=== PATIENT | female | born 1985 | race Caucasian/White ===

== ENCOUNTER 2016-11-03 11:56 | Outpatient (CLI) | payer MEDICARE, MEDICAID | END 2016-11-03 11:57 | disposition short-term general hospital (02) | LOC: EMS 11:56 | PROVIDERS: ATTEND Surgery | DX: R45.851 Suicidal ideations (principal) | CPT/HCPCS: A0425; A0429; A0888 ==

== ENCOUNTER 2017-01-16 10:53 | Outpatient (CLI) | payer MEDICARE, MEDICAID | END 2017-01-16 10:54 | disposition home or self-care (01) | LOC: EMS 10:53 | PROVIDERS: ATTEND Surgery | DX: Z04.6 Encounter for general psychiatric examination, requested by authority (principal) | CPT/HCPCS: A0425; A0429 ==

== ENCOUNTER 2017-01-16 11:21 | Emergency (ER) | payer MEDICARE, MEDICAID ==
[2017-01-16] MEDS ORDERED: LORazepam 0.5 MG TABLET PO STA (11:28)
[2017-01-16 11:55] LABS: BILIRUBIN,URINE NEGATIVE (NEGATIVE)
[2017-01-16 11:55] LABS: BASOPHILS % (AUTO) 1.2 %; EOSINOPHILS # (AUTO) 0.1 10^3/uL (0.0-0.7); EOSINOPHILS % (AUTO) 2.1 %; HCT - HEMATOCRIT 38.6 % (37.0-47.0); LYMPHOCYTES # (AUTO) 1.3 10^3/uL (1.5-3.5); MEAN CORPUSCULAR HEMOGLOBIN 30.8 pg (27.0-31.0); MEAN CORPUSCULAR HGB CONC 33.8 g/dL (32.0-36.0); MEAN CORPUSCULAR VOLUME 91.1 fL (81.0-99.0); MEAN PLATELET VOLUME 9.4 fL (7.9-10.8); MONOCYTES # (AUTO) 0.2 10^3/uL (0.0-1.0); MONOCYTES % (AUTO) 5.4 %; NEUTROPHILS # (AUTO) 2.4 10^3/uL (1.5-6.6); NEUTROPHILS % (AUTO) 58.3 %; NUCLEATED RED BLOOD CELLS AUTO 0.2 /100WBC; RED BLOOD COUNT 4.24 10^6/uL (4.20-5.40); RED CELL DISTRIBUTION WIDTH 12.2 % (12.0-15.0); UNCORRECTED WHITE BLOOD COUNT 4.1 x10^3/uL; WHITE BLOOD COUNT 4.1 x10^3/uL (4.8-10.8)
[2017-01-16 11:57] LABS: HCG UR QUAL NEGATIVE; UA CHARGE (STRIP ONLY) YES; UR CULTURE IF IND NOT INDICATED
[2017-01-16 12:07] LABS: ALBUMIN/GLOBULIN RATIO 1.8 (1.0-2.2); BILIRUBIN,TOTAL 0.7 mg/dL (0.2-1.0); BUN - BLOOD UREA NITROGEN 15 mg/dL (6-20); CALCIUM 8.7 mg/dL (8.5-10.3); CARBON DIOXIDE - CO2 26 mmol/L (21-32); CHLORIDE 105 mmol/L (101-111); CREATININE 0.7 mg/dL (0.4-1.0); GFR - MDRD 96 (>89); GLUCOSE 100 mg/dL (70-100); LIPASE 20 U/L (22-51); POTASSIUM 3.6 mmol/L (3.5-5.0); SALICYLATE < 6.0 mg/dL; SODIUM 138 mmol/L (135-145); TOTAL PROTEIN 6.1 g/dL (6.7-8.2)
[2017-01-16 12:16] LABS: ACETAMINOPHEN < 10 ug/mL (10-30)
--- NOTE | 2017-01-16 13:57 | ED Physician Documentation ---
History of Present Illness - Stated complaint Stated Complaint: MHE - Chief complaint Chief Complaint: MHE - Additonal information Additional information: hx from pt 31 f hx mental health BIBA today after she tried to get the police to kill her she also voiced plan to harm herself by drinking bleach per EMS (pt will not answer)she has not yet done anything to harm herself no reported recent illness such as fever cough NVD Review of Systems Constitutional: denies: Fever Cardiac: denies: Chest pain / pressure Respiratory: denies: Cough GI: denies: Abdominal Pain, Vomiting, Diarrhea : reports: Frequency Psychiatric: reports: Depressed, Suicidal PD PAST MEDICAL HISTORY - Past Medical History Past Medical History: Yes Cardiovascular: Hypertension Respiratory: None Neuro: None Endocrine/Autoimmune: None GI: GERD 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 : None HEENT: None Psych: Depression, Bipolar disorder Musculoskeletal: None Derm: None - Past Surgical History Past Surgical History: Yes General: Cholecystectomy - Present Medications Home Medications: Ambulatory Orders Medication Instructions Recorded Confirmed hydroCHLOROthiazide [Hydrodiuril] 25 mg PO DAILY 01/08/13 05/16/15 Ziprasidone HCl 20 mg PO BID 11/10/13 05/16/15 Zolpidem [Ambien] 10 mg PO DAILY 01/03/15 05/16/15 - Allergies Allergies/Adverse Reactions: Allergies Allergy/AdvReac Type Severity Reaction Status Date / Time Penicillins AdvReac Unknown Rash Verified 05/16/15 02:03 bee stings AdvReac Mild Respiratory Uncoded 05/16/15 02:03 - Social History Does the pt smoke?: No Smoking Status: Never smoker Does the pt drink ETOH?: Yes Does the pt have substance abuse?: No - Immunizations Immunizations are current?: Yes - POLST Patient has POLST: No PD ED PE NORMAL - Vitals Vital signs reviewed: Yes - General General: Other (make alert arrives in restraints screaming and crying and thrashing in the bed) - HEENT HEENT: Atraumatic, Other (no oral jaquez) - Neck Neck: Supple, no meningeal sign - Cardiac Cardiac: RRR - Respiratory Respiratory: No respiratory distress, Clear bilaterally - Abdomen Abdomen: Soft, Non tender - Derm Derm: Normal color - Neuro Neuro: Alert and oriented X 3 - Psych Psych: Other (crying and saying " just kill me ") Results - Vitals Vitals: Vital Signs - 24 hr 01/16/17 01/16/17 11:30 13:44 Temperature 36.8 C Heart Rate 72 57 L Respiratory 25 H 16 Rate Blood Pressure 114/78 109/63 O2 Saturation 98 100 Oxygen O2 Source Room air - Labs Labs: Laboratory Tests 01/16/17 01/16/17 01/16/17 11:40 11:40 11:40 WBC 4.1 L RBC 4.24 Hgb 13.0 Hct 38.6 MCV 91.1 MCH 30.8 MCHC 33.8 RDW 12.2 Plt Count 161 MPV 9.4 Neut # 2.4 Lymph # 1.3 L [place] # 0.2 Eos # 0.1 Baso # 0.0 Absolute Nucleated RBC 0.01 Nucleated RBCs 0.2 Sodium 138 Potassium 3.6 Chloride 105 Carbon Dioxide 26 Anion Gap 7.0 BUN 15 Creatinine 0.7 Estimated GFR (MDRD) 96 Glucose 100 Calcium 8.7 Total Bilirubin 0.7 AST 22 ALT 24 Alkaline Phosphatase 57 Total Protein 6.1 L Albumin 3.9 Globulin 2.2 Albumin/Globulin Ratio 1.8 Lipase 20 L TSH 0.60 Urine Color Urine Clarity Urine pH Ur Specific [place] Urine Protein Urine Glucose (UA) Urine Ketones Urine Occult Blood Urine Nitrite Urine Bilirubin Urine Urobilinogen Ur Leukocyte Esterase Ur Microscopic Review Urine Culture Comments Urine HCG, Qual Salicylates < 6.0 Urine Opiates Screen Ur Oxycodone Screen Urine Methadone Screen Ur Propoxyphene Screen Acetaminophen < 10 L Ur Barbiturates Screen Ur Tricyclics Screen Ur Phencyclidine Scrn Ur Amphetamine Screen U Methamphetamines Scrn U Benzodiazepines Scrn Urine Cocaine Screen U Cannabinoids Screen Ethyl Alcohol < 5.0 01/16/17 01/16/17 11:45 11:45 WBC RBC Hgb Hct MCV MCH MCHC RDW Plt Count MPV Neut # Lymph # [place] # Eos # Baso # Absolute Nucleated RBC Nucleated RBCs Sodium Potassium Chloride Carbon Dioxide Anion Gap BUN Creatinine Estimated GFR (MDRD) Glucose Calcium Total Bilirubin AST ALT Alkaline Phosphatase Total Protein Albumin Globulin Albumin/Globulin Ratio Lipase TSH Urine Color YELLOW Urine Clarity CLEAR Urine pH 6.0 Ur Specific [place] 1.020 Urine Protein NEGATIVE Urine Glucose (UA) NEGATIVE Urine Ketones [place]ACE Urine Occult Blood NEGATIVE Urine Nitrite NEGATIVE Urine Bilirubin NEGATIVE Urine Urobilinogen 0.2 (NORMAL) Ur Leukocyte Esterase NEGATIVE Ur Microscopic Review NOT INDICATED Urine Culture Comments NOT INDICATED Urine HCG, Qual NEGATIVE Salicylates Urine Opiates Screen NEGATIVE Ur Oxycodone Screen NEGATIVE Urine Methadone Screen NEGATIVE Ur Propoxyphene Screen NEGATIVE Acetaminophen Ur Barbiturates Screen NEGATIVE Ur Tricyclics Screen NEGATIVE Ur Phencyclidine Scrn NEGATIVE Ur Amphetamine Screen NEGATIVE U Methamphetamines Scrn NEGATIVE U Benzodiazepines Scrn NEGATIVE Urine Cocaine Screen NEGATIVE U Cannabinoids Screen NEGATIVE Ethyl Alcohol PD MEDICAL DECISION MAKING - ED course ED course: pt medically cleared seen by JOHN LOPEZ discussed with police and pt counselor who are familiar with pt and per them this is common behavior for this pt per SW not a danger to self or others nor gravely disabled and may be dced home pt c/o urinary freq but UA neg Departure - Departure Disposition: 01 Home, Self Care Clinical Impression: Suicidal ideation, Urinary frequency Condition: Good Instructions: ED Depression Comments: You have been seen by the social work msw for a mental health evaluation and she feels you are safe to go home. The social work msw has arranged a follow up appointment with your private counselor tomorrow Your labs looked fine including the urine test - I am not sure why you have urinary frequency - please follow up with your PMD about that
[2017-01-16 14:15] VITALS: BP 125/81
== END 2017-01-16 14:14 | disposition home or self-care (01) ==
LOC: EDUNIT# → ED 11:21
DX: R45.851 Suicidal ideations (principal); R35.0 Frequency of micturition; I10 Essential (primary) hypertension
CPT/HCPCS: 36415; 80053; 80306; 80307; 81003; 81025; 83690; 84443; 85025; 99283; 99284; G0480; 80320; 80329; 81001; 87086

== ENCOUNTER 2017-01-24 17:37 | Outpatient (CLI) | payer MEDICARE, MEDICAID | END 2017-01-24 17:38 | disposition short-term general hospital (02) | LOC: EMS 17:37 | PROVIDERS: ATTEND Surgery | DX: R45.851 Suicidal ideations (principal) | CPT/HCPCS: A0425; A0429 ==

== ENCOUNTER 2017-02-10 06:47 | Outpatient (CLI) | payer MEDICARE, MEDICAID | END 2017-02-10 06:48 | disposition short-term general hospital (02) | LOC: EMS 06:47 | PROVIDERS: ATTEND Surgery | DX: M54.5 Low back pain (principal) | CPT/HCPCS: A0425; A0429 ==

== ENCOUNTER 2017-05-07 11:08 | Outpatient (CLI) | payer MEDICARE, MEDICAID | END 2017-05-07 11:09 | disposition short-term general hospital (02) | LOC: EMS 11:08 | PROVIDERS: ATTEND Surgery | DX: R45.851 Suicidal ideations (principal) | CPT/HCPCS: A0425; A0429 ==

== ENCOUNTER 2018-02-09 15:04 | Outpatient (CLI) | payer MEDICARE, MEDICAID | END 2018-02-09 15:05 | disposition critical access hospital (66) | LOC: EMS 15:04 | PROVIDERS: ATTEND Surgery | DX: R45.851 Suicidal ideations (principal) | CPT/HCPCS: A0425; A0429 ==

== ENCOUNTER 2018-02-09 15:16 | Emergency (ER) | payer MEDICARE, MEDICAID ==
[2018-02-09 15:23] VITALS: BP 128/74
--- NOTE | 2018-02-09 15:39 | ED Physician Documentation ---
PD HPI MHE - Stated complaint Stated Complaint: SI - Chief complaint Chief Complaint: MHE - History obtained from History obtained from: Patient, EMS, Police - History of Present Illness Primary symptom: Suicidal ideation Timing - onset: Today Pain level max: 0 Pain level now: 0 - Additional information Additional information: Patient is a 32-year-old female who presents to the emergency department after being brought in by EMS and police. She called 911 to have a asset protection officer dispatched to her home that they would "shoot me". She states that she would like the police officers to come back and and shoot her. She states that she will sign a waiver so that there are no legal issues with this. She states she is depressed and suicidal. When the police were at her house, she asked them to shoot her, but when they refused she went back into the house and threatened to grab a knife and kill herself. At that point she was brought here. She states she is no longer using alcohol. Is not taking any medications. States she does not want to go to the hospital and does not want to be here. States she does not want any medications. 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 : None HEENT: None Psych: Depression, Bipolar disorder Musculoskeletal: None Derm: None - Past Surgical History Past Surgical History: Yes General: Cholecystectomy - Allergies Allergies/Adverse Reactions: Allergies Allergy/AdvReac Type Severity Reaction Status Date / Time Penicillins AdvReac Unknown Rash Verified 05/16/15 02:03 bee stings AdvReac Mild Respiratory Uncoded 05/16/15 02:03 - Social History Does the pt smoke?: No Smoking Status: Never smoker Does the pt drink ETOH?: Yes Does the pt have substance abuse?: No - Immunizations Immunizations are current?: Yes - POLST Patient has POLST: No PD ED PE NORMAL - Vitals Vital signs reviewed: Yes - General General: Alert and oriented X 3, No acute distress - HEENT HEENT: Moist mucous membranes - Neck Neck: Supple, no meningeal sign - Cardiac Cardiac: RRR, Strong equal pulses - Respiratory Respiratory: No respiratory distress, Clear bilaterally - Abdomen Abdomen: Soft, Non tender, Non distended - Derm Derm: Warm and dry - Extremities Extremities: No edema - Neuro Neuro: Alert and oriented X 3 - Psych Psych: Other (flat affect) Results - Vitals Vitals: Vital Signs - 24 hr 02/09/18 15:18 Temperature 36.6 C Heart Rate 64 Respiratory 16 Rate Blood Pressure 128/74 O2 Saturation 100 Oxygen O2 Source Room air - EKG (time done) 1844 Rate: Rate (enter#) (71) Rhythm: NSR [place]: Normal Intervals: Normal [place] QRS: Normal Ischemia: Normal ST segments - Labs Labs: Laboratory Tests 02/09/18 02/09/18 02/09/18 15:32 15:32 15:40 WBC 5.3 RBC 4.46 Hgb 13.9 Hct 41.4 MCV 92.8 MCH 31.2 H MCHC 33.7 RDW 13.0 Plt Count 201 MPV 9.3 Neut # (Auto) 3.2 Lymph # (Auto) 1.6 [place] # (Auto) 0.3 Eos # (Auto) 0.2 Baso # (Auto) 0.1 Absolute Nucleated RBC 0.00 Nucleated RBC % 0.0 Sodium 138 Potassium 4.1 Chloride 102 Carbon Dioxide 28 Anion Gap 8.0 BUN 8 Creatinine 0.6 Estimated GFR (MDRD) 114 Glucose 112 H Calcium 8.9 Total Bilirubin 0.5 AST 35 ALT 46 Alkaline Phosphatase 67 Total Protein 6.4 L Albumin 4.2 Globulin 2.2 Albumin/Globulin Ratio 1.9 Lipase 28 Urine Color YELLOW Urine Clarity CLEAR Urine pH 7.5 Ur Specific [place] <=1.005 Urine Protein NEGATIVE Urine Glucose (UA) NEGATIVE Urine Ketones NEGATIVE Urine Occult Blood NEGATIVE Urine Nitrite NEGATIVE Urine Bilirubin NEGATIVE Urine Urobilinogen 0.2 (NORMAL) Ur Leukocyte Esterase NEGATIVE Ur Microscopic Review NOT INDICATED Urine Culture Comments NOT INDICATED Urine HCG, Qual NEGATIVE Salicylates < 6.0 Urine Opiates Screen Ur Oxycodone Screen Urine Methadone Screen Ur Propoxyphene Screen Acetaminophen < 10 L Ur Barbiturates Screen Ur Tricyclics Screen Ur Phencyclidine Scrn Ur Amphetamine Screen U Methamphetamines Scrn U Benzodiazepines Scrn Urine Cocaine Screen U Cannabinoids Screen Ethyl Alcohol < 5.0 02/09/18 15:40 WBC RBC Hgb Hct MCV MCH MCHC RDW Plt Count MPV Neut # (Auto) Lymph # (Auto) [place] # (Auto) Eos # (Auto) Baso # (Auto) Absolute Nucleated RBC Nucleated RBC % Sodium Potassium Chloride Carbon Dioxide Anion Gap BUN Creatinine Estimated GFR (MDRD) Glucose Calcium Total Bilirubin AST ALT Alkaline Phosphatase Total Protein Albumin Globulin Albumin/Globulin Ratio Lipase Urine Color Urine Clarity Urine pH Ur Specific [place] Urine Protein Urine Glucose (UA) Urine Ketones Urine Occult Blood Urine Nitrite Urine Bilirubin Urine Urobilinogen Ur Leukocyte Esterase Ur Microscopic Review Urine Culture Comments Urine HCG, Qual Salicylates Urine Opiates Screen NEGATIVE Ur Oxycodone Screen NEGATIVE Urine Methadone Screen NEGATIVE Ur Propoxyphene Screen NEGATIVE Acetaminophen Ur Barbiturates Screen NEGATIVE Ur Tricyclics Screen NEGATIVE Ur Phencyclidine Scrn NEGATIVE Ur Amphetamine Screen NEGATIVE U Methamphetamines Scrn NEGATIVE U Benzodiazepines Scrn NEGATIVE Urine Cocaine Screen NEGATIVE U Cannabinoids Screen NEGATIVE Ethyl Alcohol PD MEDICAL DECISION MAKING - ED course Complexity details: reviewed old records, reviewed results, re-evaluated patient , considered differential, d/w patient, d/w labor relations consultant (DMHP) ED course: Patient is medically clear for psychiatric care. She is clearly involuntary. [facility] was contacted and the [facility] was dispatched. Kye began the case and passed off to Ramona DMHP. The patient was placed on an JEFF hold and will be transferred to [facility] with Dr. Mayo who accepts in transfer. This document was made in part using voice recognition software. While efforts are made to proofread this document, sound alike and grammatical errors may occur. - Sepsis Event Vital Signs: Vital Signs - 24 hr 02/09/18 15:18 Temperature 36.6 C Heart Rate 64 Respiratory 16 Rate Blood Pressure 128/74 O2 Saturation 100 Oxygen O2 Source Room air Departure - Departure Disposition: 65 Psych Hosp/Unit DC/Xfer Clinical Impression: Suicidal ideation Condition: Stable Discharge Date/Time: 02/09/18 23:00
[2018-02-09 15:40] LABS: BASOPHILS # (AUTO) 0.1 10^3/uL (0.0-0.1); BASOPHILS % (AUTO) 1.1 %; EOSINOPHILS # (AUTO) 0.2 10^3/uL (0.0-0.7); EOSINOPHILS % (AUTO) 4.3 %; HGB - HEMOGLOBIN 13.9 g/dL (12.0-16.0); LYMPHOCYTES # (AUTO) 1.6 10^3/uL (1.5-3.5); MEAN CORPUSCULAR HEMOGLOBIN 31.2 pg (27.0-31.0); MEAN CORPUSCULAR HGB CONC 33.7 g/dL (32.0-36.0); MEAN CORPUSCULAR VOLUME 92.8 fL (81.0-99.0); MEAN PLATELET VOLUME 9.3 fL (7.9-10.8); MONOCYTES # (AUTO) 0.3 10^3/uL (0.0-1.0); MONOCYTES % (AUTO) 5.4 %; NEUTROPHILS # (AUTO) 3.2 10^3/uL (1.5-6.6); NEUTROPHILS % (AUTO) 59.2 %; PLT - PLATELET COUNT 201 10^3/uL (130-450); RED BLOOD COUNT 4.46 10^6/uL (4.20-5.40); WHITE BLOOD COUNT 5.3 x10^3/uL (4.8-10.8)
[2018-02-09 15:51] LABS: ALBUMIN 4.2 g/dL (3.2-5.5); ALBUMIN/GLOBULIN RATIO 1.9 (1.0-2.2); ALKALINE PHOSPHATASE 67 IU/L (42-121); ALT ALANINE AMINOTRANSFERASE 46 IU/L (10-60); AST ASPARTATE AMINOTRANSFERASE 35 IU/L (10-42); BILIRUBIN,TOTAL 0.5 mg/dL (0.2-1.0); BUN - BLOOD UREA NITROGEN 8 mg/dL (6-20); CALCIUM 8.9 mg/dL (8.5-10.3); CARBON DIOXIDE - CO2 28 mmol/L (21-32); CHLORIDE 102 mmol/L (101-111); CREATININE 0.6 mg/dL (0.4-1.0); GFR - MDRD 114 (>89); GLUCOSE 112 mg/dL (70-100); LIPASE 28 U/L (22-51); SALICYLATE < 6.0 mg/dL; SODIUM 138 mmol/L (135-145); TOTAL PROTEIN 6.4 g/dL (6.7-8.2)
[2018-02-09 15:54] LABS: ACETAMINOPHEN < 10 ug/mL (10-30)
[2018-02-09 16:05] LABS: BILIRUBIN,URINE NEGATIVE (NEGATIVE); GLUCOSE, URINE (UA) NEGATIVE (NEGATIVE); KETONES,URINE (UA) NEGATIVE (NEGATIVE); LEUKOCYTE ESTERASE, URINE NEGATIVE (NEGATIVE); NITRITE,URINE NEGATIVE (NEGATIVE); OCCULT BLOOD,URINE NEGATIVE (NEGATIVE); PH,URINE 7.5 PH (5.0-7.5); PROTEIN,URINE NEGATIVE (NEGATIVE); UROBILINOGEN,URINE 0.2 (NORMAL) E.U./dL (NORMAL)
[2018-02-09 16:09] LABS: MUDS CUTOFF CONCENTRATIONS CUTOFF CONC BELOW:
[2018-02-09 16:12] LABS: CLARITY,URINE CLEAR (CLEAR); HCG UR QUAL NEGATIVE
[2018-02-09 16:23] LABS: AMPHETAMINE SCREEN,URINE NEGATIVE (NEGATIVE); BENZODIAZEPINES SCREEN, URINE NEGATIVE (NEGATIVE); COCAINE SCREEN URINE NEGATIVE (NEGATIVE); METHADONE SCREEN, URINE NEGATIVE (NEGATIVE); METHAMPHETAMINES SCREEN, URINE NEGATIVE (NEGATIVE); OPIATE SCREEN, URINE NEGATIVE (NEGATIVE); OXYCODONE SCREEN, URINE NEGATIVE (NEGATIVE); PROPOXYPHENE SCREEN, URINE NEGATIVE (NEGATIVE); TRICYCLIC ANTIDEPRESSANT,URINE NEGATIVE (NEGATIVE)
== END 2018-02-09 23:00 ==
LOC: EDUNIT# → ED 15:16
DX: R45.851 Suicidal ideations (principal)
CPT/HCPCS: 36415; 80053; 80306; 80307; 80320; 80329; 81001; 81003; 81025; 83690; 85025; 87086; 93005; 99283; 99284; 99285

== ENCOUNTER 2018-02-09 22:57 | Outpatient (CLI) | payer MEDICARE, MEDICAID | END 2018-02-09 22:58 | LOC: EMS 22:57 | PROVIDERS: ATTEND Surgery | DX: R46.89 Other symptoms and signs involving appearance and behavior (principal) | CPT/HCPCS: A0170; A0425; A0428 ==

== ENCOUNTER 2018-05-30 01:37 | Outpatient (CLI) | payer MEDICARE, MEDICAID | END 2018-05-30 01:38 | disposition EMS.NT | LOC: EMS 01:37 | PROVIDERS: ATTEND Surgery | DX: S61.011A Laceration without foreign body of right thumb without damage to nail, initial encounter (principal); W26.9XXA Contact with unspecified sharp object(s), initial encounter; Y92.009 Unspecified place in unspecified non-institutional (private) residence as the place of occurrence of the external cause ==

== ENCOUNTER 2018-05-30 05:19 | Outpatient (CLI) | payer MEDICARE, MEDICAID | END 2018-05-30 05:20 | disposition EMS.NT | LOC: EMS 05:19 | PROVIDERS: ATTEND Surgery | DX: S61.011A Laceration without foreign body of right thumb without damage to nail, initial encounter (principal); X58.XXXA Exposure to other specified factors, initial encounter ==

== ENCOUNTER 2018-07-10 19:54 | Outpatient (CLI) | payer MEDICARE, MEDICAID | END 2018-07-10 19:55 | disposition critical access hospital (66) | LOC: EMS 19:54 | PROVIDERS: ATTEND Surgery | DX: S60.456A Superficial foreign body of right little finger, initial encounter (principal); W45.8XXA Other foreign body or object entering through skin, initial encounter; Y93.89 Activity, other specified; Y92.009 Unspecified place in unspecified non-institutional (private) residence as the place of occurrence of the external cause | CPT/HCPCS: A0425; A0429 ==

== ENCOUNTER 2018-07-10 20:05 | Emergency (ER) | payer MEDICARE, MEDICAID ==
--- NOTE | 2018-07-10 22:21 | ED Physician Documentation ---
PD HPI UPPER EXT INJURY - Stated complaint Stated Complaint: SPLINTER IN FINGER - Chief complaint Chief Complaint: Ext Problem - History obtained from History obtained from: Patient - History of Present Illness Location: Right, Finger (little finger tip, from banister on stairs she walked down, got small splinter in finger and unable to remove it at home.) Timing - onset: Today Timing - details: Abrupt onset, Still present Worsened by: Palpating Associated symptoms: No: Weakness, Numbness, Swelling Similar symptoms before: Has not had sx before Recently seen: Not recently seen Review of Systems Constitutional: denies: Fever, Chills Cardiac: reports: Pedal edema (bilaterally for long time, worse at end of day. No orthopnea nor dyspnea.). 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 : None HEENT: None Psych: Depression, Bipolar disorder Musculoskeletal: None Derm: None - Past Surgical History Past Surgical History: Yes General: Cholecystectomy - Present Medications Home Medications: Ambulatory Orders Medication Instructions Recorded Confirmed hydroCHLOROthiazide 25 mg PO DAILY #30 tablet 07/10/18 [Hydrochlorothiazide] - Allergies Allergies/Adverse Reactions: Allergies Allergy/AdvReac Type Severity Reaction Status Date / Time Penicillins AdvReac Unknown Rash Verified 07/10/18 20:09 bee stings AdvReac Mild Respiratory Uncoded 07/10/18 20:09 - Social History Does the pt smoke?: No Smoking Status: Never smoker Does the pt drink ETOH?: Yes Does the pt have substance abuse?: No - Immunizations Immunizations are current?: Yes - POLST Patient has POLST: No PD ED PE NORMAL - Vitals Vital signs reviewed: Yes - General General: Alert and oriented X 3, No acute distress, Well developed/nourished - Cardiac Cardiac: RRR, No murmur - Respiratory Respiratory: Clear bilaterally - Back Back: No CVA TTP - Derm Derm: Normal color, Warm and dry, No rash - Extremities Extremities: No calf tenderness / cord, Other (right little finger tip, not at nailbed, with 1 cm splinter just under the skin, the line of it visible as dark colored line. No end sticking out though ). No: No edema (1+ edema in both lower legs, not tender and no calf tenderness. ) - Neuro Neuro: Alert and oriented X 3, No motor deficit, Normal speech Results - Vitals Vitals: Vital Signs - 24 hr 07/11/18 00:07 Heart Rate 54 L Respiratory 16 Rate Blood Pressure 112/79 O2 Saturation 99 Oxygen O2 Source Room air - Labs Labs: Laboratory Tests 07/10/18 07/10/18 07/10/18 23:25 23:25 23:25 WBC 4.5 L RBC 4.24 Hgb 13.4 Hct 39.4 MCV 92.8 MCH 31.7 H MCHC 34.1 RDW 12.6 Plt Count 199 MPV 9.2 Neut # (Auto) 2.2 Lymph # (Auto) 1.8 [place] # (Auto) 0.3 Eos # (Auto) 0.2 Baso # (Auto) 0.1 Absolute Nucleated RBC 0.01 Nucleated RBC % 0.2 Sodium 135 Potassium 3.7 Chloride 105 Carbon Dioxide 25 Anion Gap 5.0 L BUN 11 Creatinine 0.6 Estimated GFR (MDRD) 114 Glucose 92 Calcium 8.7 Total Bilirubin 0.8 AST 30 ALT 31 Alkaline Phosphatase 56 B-Natriuretic Peptide 9 Total Protein 6.2 L Albumin 3.9 Globulin 2.3 Albumin/Globulin Ratio 1.7 Lipase 29 Urine Color Urine Clarity Urine pH Ur Specific [place] Urine Protein Urine Glucose (UA) Urine Ketones Urine Occult Blood Urine Nitrite Urine Bilirubin Urine Urobilinogen Ur Leukocyte Esterase Ur Microscopic Review Urine Culture Comments 07/10/18 23:45 WBC RBC Hgb Hct MCV MCH MCHC RDW Plt Count MPV Neut # (Auto) Lymph # (Auto) [place] # (Auto) Eos # (Auto) Baso # (Auto) Absolute Nucleated RBC Nucleated RBC % Sodium Potassium Chloride Carbon Dioxide Anion Gap BUN Creatinine Estimated GFR (MDRD) Glucose Calcium Total Bilirubin AST ALT Alkaline Phosphatase B-Natriuretic Peptide Total Protein Albumin Globulin Albumin/Globulin Ratio Lipase Urine Color YELLOW Urine Clarity CLEAR Urine pH 5.5 Ur Specific [place] 1.025 Urine Protein NEGATIVE Urine Glucose (UA) NEGATIVE Urine Ketones 40 H Urine Occult Blood NEGATIVE Urine Nitrite NEGATIVE Urine Bilirubin NEGATIVE Urine Urobilinogen 0.2 (NORMAL) Ur Leukocyte Esterase NEGATIVE Ur Microscopic Review NOT INDICATED Urine Culture Comments NOT INDICATED Procedures - FB removal FB location: Subcutaneous FB removal preparation: Regional block-specify (right little finger digital block with lido 2%.) Removal method: Foreceps, Incision (the splinter was fully under the skin so had to unroof the line of it and pull out in small pieces.) FB removal aftercare: No complications, Removed successfully PD MEDICAL DECISION MAKING - ED course Complexity details: reviewed old records, reviewed results, d/w patient (she is pleasant and cooperative. Here for splinter removal and this was done okay with digital block. On ROS, notes some edema in legs for long time, but worse the past few weeks. Checked creatinine, lytes, and BNP. Lungs sound clear. ) Departure - Departure Disposition: 01 Home, Self Care Clinical Impression: Splinter of finger, Leg edema Condition: Stable Record reviewed to determine appropriate education?: Yes Instructions: ED Edema Legs Bilateral, ED Foreign Body Splinter Removal Prescriptions: hydroCHLOROthiazide [Hydrochlorothiazide] 25 mg PO DAILY #30 tablet Comments: Your kidney function is okay and there is no signs of heart failure. You could try a mild diuretic to see if it helps with your leg edema. Otherwise generally some mild exercise daily such as going for walks and elevating your legs when rested is helpful as well. Follow-up with your primary care as needed. Regarding your finger, the splinter is out now. You can soak it in warm water at a time or 2 a day and apply little ointment. Recheck if signs of infection. You were given a tetanus booster as well today is a good for 10 years. Discharge Date/Time: 07/11/18 00:17
[2018-07-10] MEDS ORDERED: LIDOCAINE 2% 10 ML MDV SUBQ STA (22:25)
[2018-07-10 23:28] LABS: BASOPHILS # (AUTO) 0.1 10^3/uL (0.0-0.1); BASOPHILS % (AUTO) 1.3 %; EOSINOPHILS # (AUTO) 0.2 10^3/uL (0.0-0.7); HGB - HEMOGLOBIN 13.4 g/dL (12.0-16.0); LYMPHOCYTES # (AUTO) 1.8 10^3/uL (1.5-3.5); LYMPHOCYTES % (AUTO) 39.2 %; MEAN CORPUSCULAR HEMOGLOBIN 31.7 pg (27.0-31.0); MEAN CORPUSCULAR HGB CONC 34.1 g/dL (32.0-36.0); MEAN CORPUSCULAR VOLUME 92.8 fL (81.0-99.0); MEAN PLATELET VOLUME 9.2 fL (7.9-10.8); MONOCYTES # (AUTO) 0.3 10^3/uL (0.0-1.0); MONOCYTES % (AUTO) 6.6 %; NEUTROPHILS # (AUTO) 2.2 10^3/uL (1.5-6.6); NEUTROPHILS % (AUTO) 48.9 %; PLT - PLATELET COUNT 199 10^3/uL (130-450); RED BLOOD COUNT 4.24 10^6/uL (4.20-5.40); RED CELL DISTRIBUTION WIDTH 12.6 % (12.0-15.0); WHITE BLOOD COUNT 4.5 x10^3/uL (4.8-10.8)
[2018-07-10 23:41] LABS: ALBUMIN 3.9 g/dL (3.2-5.5); ALBUMIN/GLOBULIN RATIO 1.7 (1.0-2.2); BILIRUBIN,TOTAL 0.8 mg/dL (0.2-1.0); CALCIUM 8.7 mg/dL (8.5-10.3); CREATININE 0.6 mg/dL (0.4-1.0); TOTAL PROTEIN 6.2 g/dL (6.7-8.2)
[2018-07-10 23:54] LABS: BILIRUBIN,URINE NEGATIVE (NEGATIVE); GLUCOSE, URINE (UA) NEGATIVE (NEGATIVE); KETONES,URINE (UA) 40 mg/dL (NEGATIVE); LEUKOCYTE ESTERASE, URINE NEGATIVE (NEGATIVE); NITRITE,URINE NEGATIVE (NEGATIVE); OCCULT BLOOD,URINE NEGATIVE (NEGATIVE); PH,URINE 5.5 PH (5.0-7.5); PROTEIN,URINE NEGATIVE (NEGATIVE); UROBILINOGEN,URINE 0.2 (NORMAL) E.U./dL (NORMAL)
[2018-07-10] MEDS ORDERED: TETANUS/DIPHTHERIA/PERTUSSIS 0.5 ML SYRINGE IM ONE (23:55)
[2018-07-10 23:56] LABS: CLARITY,URINE CLEAR (CLEAR)
[2018-07-11 00:08] VITALS: BP 112/79
== END 2018-07-11 00:17 | disposition home or self-care (01) ==
LOC: EDUNIT# → ED 20:05
DX: S60.456A Superficial foreign body of right little finger, initial encounter (principal); W45.8XXA Other foreign body or object entering through skin, initial encounter; Y93.01 Activity, walking, marching and hiking; Y92.009 Unspecified place in unspecified non-institutional (private) residence as the place of occurrence of the external cause; R60.0 Localized edema; I10 Essential (primary) hypertension; Z23 Encounter for immunization
CPT/HCPCS: 10120; 36415; 80053; 81001; 81003; 83690; 83880; 85025; 87086; 90471; 99283

== ENCOUNTER 2018-12-10 09:44 | Outpatient (CLI) | payer MEDICARE, MEDICAID | END 2018-12-10 09:45 | disposition home or self-care (01) | LOC: SC 09:44 | PROVIDERS: ATTEND Internal Medicine Pulmonary Disease | DX: G47.10 Hypersomnia, unspecified (principal); R41.89 Other symptoms and signs involving cognitive functions and awareness; G47.8 Other sleep disorders | CPT/HCPCS: 99203; G0463; 99212 ==

== ENCOUNTER 2019-01-10 20:20 | Outpatient (CLI) | payer MEDICARE, MEDICAID | END 2019-01-10 20:21 | disposition home or self-care (01) | LOC: SC 20:20 | PROVIDERS: ATTEND Internal Medicine Pulmonary Disease | DX: G47.10 Hypersomnia, unspecified (principal); E66.9 Obesity, unspecified; Z68.28 Body mass index [BMI] 28.0-28.9, adult | CPT/HCPCS: 95810 ==

== ENCOUNTER 2019-02-10 13:56 | Outpatient (CLI) | payer MEDICARE, MEDICAID ==
--- NOTE | 2019-02-10 15:25 | SLEEP CARE CONSULTATION ---
Information from patient questionnaire entered by Kelly Montano. I have reviewed and concur with the information entered by Kelly Montano. This document represents the service I personally performed and the decisions made by me, Monserrat Sterling MD, [facility]. History of Present Illness Initial Dodge Sleepiness Scale score: 12 Current Dodge Sleepiness Scale score: 14 Additional HPI information: Ms. Samuel returned for follow up of the sleep study she had on 01/10/2019. The polysomnography showed that The patient had normal sleep efficiency. The sleep architecture was normal as well. Respiratory monitoring showed no significant sleep disordered breathing (AHI = 0.3) or hypoxia (franki oxygen saturation of 90 %). The patient slept mostly supine (supine AHI = 0.3; non-supine = 0.25). No audible snore. There was no significant periodic leg movement of sleep. Cardiac rhythm was normal sinus rhythm without significant arrhythmia. No abnormal behavior (parasomnia) observed during the night. The patient was informed of these findings. I explained to her the sleep study was normal. Allergies and Home Medications Home medication list reviewed: Yes Review of Systems Review of systems same as previous: Yes Impression and Plan IMPRESSION: 1. Fatigue, not explained by sleep disorder. Further workup will be deferred to her primary care provider. 2. Noctunal enuresis (bed wetting), also not explained by sleep disorder. Other causes will have to be ruled out. These include diabetes, chronic UTI, anatomical abnormality of the urinary tract, etc. A referral to a urologist may be beneficial. PLAN: 1. Follow up with her primary care provider. 2. Return to the sleep clinic on as needed basis. I spent 100% of this 15 minute visit face to face with the patient with greater than 50% of this was spent time counseling the patient and coordination of care.
== END 2019-02-10 13:57 | disposition home or self-care (01) ==
LOC: SC 13:56
PROVIDERS: ATTEND Internal Medicine Pulmonary Disease
DX: R53.83 Other fatigue (principal); N39.44 Nocturnal enuresis
CPT/HCPCS: 99212; 99213

== ENCOUNTER 2020-10-25 13:39 | Outpatient (CLI) | payer MEDICAID, MEDICARE ==
--- NOTE | 2020-10-25 15:48 | SLEEP CARE CONSULTATION ---
Information from patient questionnaire entered by Mindy White. I have reviewed and concur with the information entered by Mindy White. This document represents the service I personally performed and the decisions made by me, Monserrat Sterling MD, [facility]. History of Present Illness Service Date and Time: 10/25/2020 1339 Reason for follow up: annual (last seen 01/2019), other (wants letter about jet noise) Prior sleep studies: Yes Year and Where: 2019 - [facility] Type of Sleep Study: Polysomnography (negative - AHI - 0.3) HPI additional information: HPI: Ms. Samuel returned today for follow up after last seen 2 years ago for her complaint of fatigue and enuresis. We performed an in-laboratory polysomnography and it was completely normal. She states that she has an appointment with urogynecologist at [facility] next month. She complains that her sleep is disrupted by the jet noise from the [employer]. She asks me to write a letter to that effect. I informed her that I cannot because I cannot verify what happens at her house at night. The jet is a known problem here in [place]. Subjective Initial Hallam Sleepiness Scale score: 12 (in 2019) Current Hallam Sleepiness Scale score: 15 Allergies and Home Medications Drug allergies reviewed: Yes Home medication list reviewed: Yes Review of Systems Review of systems same as previous: Yes Physical Exam Height: 5 ft 5 in Weight: 179 lb Weight change since last visit: 9 Body Mass Index: 29.7 BMI Classification: Overweight Impression and Plan IMPRESSION: 1. Enuresis not explained by sleep disrupting conditions. The patient will be evaluated by a urogynecologist. 2. Fatigue. I explained to her that fatigue can be from multitude of etiologies and she should continue to discuss it with her primary care provider. PLAN: 1. Return on as needed basis. Visit Type: In Office Time Spent with Patient (minutes): 15 Provider Statement: I spent 100% of the Face to Face Visit with the patient with greater than 50% spent counseling the patient and coordination of care.
== END 2020-10-25 13:40 | disposition home or self-care (01) ==
LOC: SC 13:39
PROVIDERS: ATTEND Internal Medicine Pulmonary Disease
DX: R53.83 Other fatigue (principal); R32 Unspecified urinary incontinence; E66.3 Overweight; Z68.29 Body mass index [BMI] 29.0-29.9, adult
CPT/HCPCS: 99212; G0463

== ENCOUNTER 2021-02-05 06:23 | Outpatient (CLI) | payer MEDICARE, MEDICAID | END 2021-02-05 06:24 | disposition critical access hospital (66) | LOC: EMS 06:23 | DX: R45.851 Suicidal ideations (principal) | CPT/HCPCS: A0425; A0429 ==

== ENCOUNTER 2021-02-05 07:04 | Emergency (ER) | payer MEDICARE, MEDICAID ==
[2021-02-05 07:32] LABS: MUDS CUTOFF CONCENTRATIONS CUTOFF CONC BELOW:
[2021-02-05 07:35] LABS: BILIRUBIN,URINE NEGATIVE (NEGATIVE); GLUCOSE, URINE (UA) NEGATIVE (NEGATIVE); KETONES,URINE (UA) NEGATIVE (NEGATIVE); LEUKOCYTE ESTERASE, URINE NEGATIVE (NEGATIVE); NITRITE,URINE NEGATIVE (NEGATIVE); OCCULT BLOOD,URINE NEGATIVE (NEGATIVE); PROTEIN,URINE NEGATIVE (NEGATIVE); UROBILINOGEN,URINE 0.2 (NORMAL) E.U./dL (NORMAL)
[2021-02-05 07:37] LABS: CLARITY,URINE CLEAR (CLEAR); HCG UR QUAL NEGATIVE
[2021-02-05 07:41] LABS: ACETAMINOPHEN < 10 ug/mL (10-30); ALBUMIN 4.1 g/dL (3.2-5.5); ALKALINE PHOSPHATASE 62 IU/L (42-121); ALT ALANINE AMINOTRANSFERASE 25 IU/L (10-60); AST ASPARTATE AMINOTRANSFERASE 24 IU/L (10-42); BILIRUBIN,TOTAL 0.9 mg/dL (0.2-1.0); BUN - BLOOD UREA NITROGEN 13 mg/dL (6-20); CALCIUM 8.8 mg/dL (8.5-10.3); CARBON DIOXIDE - CO2 26 mmol/L (21-32); CHLORIDE 105 mmol/L (101-111); CREATININE 0.6 mg/dL (0.4-1.0); ETOH - ETHANOL < 5.0 mg/dL; GFR - MDRD 112 (>89); GLUCOSE 110 mg/dL (70-100); LIPASE 27 U/L (22-51); POTASSIUM 3.7 mmol/L (3.5-5.0); SALICYLATE < 6.0 mg/dL; SODIUM 140 mmol/L (135-145); TOTAL PROTEIN 6.2 g/dL (6.7-8.2)
[2021-02-05 07:44] LABS: BASOPHILS % (AUTO) 1.3 %; EOSINOPHILS # (AUTO) 0.1 10^3/uL (0.0-0.7); HCT - HEMATOCRIT 43.2 % (37.0-47.0); HGB - HEMOGLOBIN 14.3 g/dL (12.0-16.0); LYMPHOCYTES # (AUTO) 0.9 10^3/uL (1.5-3.5); LYMPHOCYTES % (AUTO) 29.6 %; MEAN CORPUSCULAR HEMOGLOBIN 31.8 pg (27.0-31.0); MEAN CORPUSCULAR HGB CONC 33.1 g/dL (32.0-36.0); MONOCYTES # (AUTO) 0.2 10^3/uL (0.0-1.0); MONOCYTES % (AUTO) 6.7 %; NEUTROPHILS # (AUTO) 1.8 10^3/uL (1.5-6.6); NEUTROPHILS % (AUTO) 60.1 %; PLT - PLATELET COUNT 187 10^3/uL (130-450); RED CELL DISTRIBUTION WIDTH 11.3 % (12.0-15.0)
[2021-02-05 07:50] LABS: AMPHETAMINE SCREEN,URINE NEGATIVE (NEGATIVE); BARBITURATE SCREEN,UR NEGATIVE (NEGATIVE); BENZODIAZEPINES SCREEN, URINE NEGATIVE (NEGATIVE); COCAINE SCREEN URINE NEGATIVE (NEGATIVE); METHADONE SCREEN, URINE NEGATIVE (NEGATIVE); METHAMPHETAMINES SCREEN, URINE NEGATIVE (NEGATIVE); OPIATE SCREEN, URINE NEGATIVE (NEGATIVE); OXYCODONE SCREEN, URINE NEGATIVE (NEGATIVE); PROPOXYPHENE SCREEN, URINE NEGATIVE (NEGATIVE); THC CANNABINOID SCREEN, URINE NEGATIVE (NEGATIVE); TRICYCLIC ANTIDEPRESSANT,URINE NEGATIVE (NEGATIVE)
[2021-02-05] MEDS ORDERED: LORazepam 1 MG TABLET PO STA ×4 (10:14→18:40)
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
[2021-02-05 15:12] LABS: CORONAVIRUS 229E-RESP PCR NOT DETECTED; CORONAVIRUS HKU1-RESP PCR NOT DETECTED; CORONAVIRUS NL63-RESP PCR NOT DETECTED; CORONAVIRUS OC43-RESP PCR NOT DETECTED; HUMAN METAPNEUMOVIRUS NOT DETECTED; INFLUENZA A- RESP PCR PANEL NOT DETECTED; INFLUENZA B - RESP PCR PANEL NOT DETECTED; PARAINFLUENZA VIRUS 1 NOT DETECTED; PARAINFLUENZA VIRUS 2 NOT DETECTED; PARAINFLUENZA VIRUS 3 NOT DETECTED; PARAINFLUENZA VIRUS 4 NOT DETECTED; RHINOVIRUS/ENTEROVIRUS NOT DETECTED; SARS-CoV-2 -RESP PCR PANEL NOT DETECTED
[2021-02-05 15:13] LABS: B. PARAPERTUSSIS- RESP PCR PAN NOT DETECTED; B. PERTUSSIS- RESP PCR PANEL NOT DETECTED; C. PNEUMONIAE- RESP PCR PANEL NOT DETECTED; M. PNEUMONIAE- RESP PCR PANEL NOT DETECTED; RSV- RESP PCR PANEL NOT DETECTED
--- NOTE | 2021-02-05 18:34 | ED Physician Documentation ---
ED Addendum - Addendum Addendum: 02/05/21 18:34 GENEVA Fishman detained her to [facility]. I filled out cobras. They needed a prescription for Ativan which was written. Disposition: Transfer to psychiatric facility Condition: Stable
[2021-02-05] MEDS ORDERED: ACETAMINOPHEN 325 MG TABLET PO STA (22:06)
[2021-02-05 23:48] VITALS: BP 113/75
== END 2021-02-05 23:48 ==
LOC: EDUNIT# → ED 07:04
DX: R45.851 Suicidal ideations (principal); F32.9 Major depressive disorder, single episode, unspecified; Z20.822 Contact with and (suspected) exposure to COVID-19
CPT/HCPCS: 36415; 80053; 80306; 80307; 81003; 81025; 83690; 84443; 85025; 87631; 93005; 99283; 99285; A9270; G0480; J8499; 0202U; 80320; 80329; 81001; 87086

== ENCOUNTER 2021-03-28 04:21 | Outpatient (CLI) | payer MEDICARE, MEDICAID | END 2021-03-28 04:22 | disposition EMS.NT | LOC: EMS 04:21 | DX: F41.9 Anxiety disorder, unspecified (principal) ==

== ENCOUNTER 2023-01-14 12:02 | Outpatient (CLI) | payer MEDICARE, MEDICAID | END 2023-01-14 12:03 | disposition critical access hospital (66) | LOC: EMS 12:02 | DX: R09.89 Other specified symptoms and signs involving the circulatory and respiratory systems (principal); R13.10 Dysphagia, unspecified; R11.10 Vomiting, unspecified | CPT/HCPCS: A0425; A0429 ==

== ENCOUNTER 2023-01-14 12:14 | Emergency (ER) | payer MEDICARE, MEDICAID ==
--- NOTE | 2023-01-14 12:35 | ED Physician Documentation ---
History of Present Illness - Stated complaint Stated Complaint: THROAT PROBLEM - Chief complaint Chief Complaint: Heent - History obtained from History obtained from: Patient - History of Present Illness Timing: Today Pain level max: 0 Pain level now: 0 - Additonal information Additional information: Patient is a 37-year-old female who states that she was taking supplements today when she felt like 1 became stuck in her throat. She states that she vomited and the pill came up. She has not tried to eat or drink anything since. She states that she has had an esophageal dilation in the past. No fevers. No chills. Denies any possibility of . 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 : Incontinence HEENT: None Psych: Depression, Bipolar disorder Musculoskeletal: None Derm: None - Past Surgical History Past Surgical History: Yes General: Cholecystectomy - Present Medications Home Medications: Ambulatory Orders Medication Instructions Recorded Confirmed hydroCHLOROthiazide 25 mg PO DAILY #30 tablet 07/10/18 [Hydrochlorothiazide] LORazepam [Ativan] 1 - 2 tab PO Q2H PRN #24 tablet 02/05/21 - Allergies Allergies/Adverse Reactions: Allergies Allergy/AdvReac Type Severity Reaction Status Date / Time Penicillins AdvReac Unknown Rash Verified 07/10/18 20:09 bee stings AdvReac Mild Respiratory Uncoded 07/10/18 20:09 - Social History Does the pt smoke?: No Smoking Status: Never smoker Does the pt drink ETOH?: Yes Does the pt have substance abuse?: No - Immunizations Immunizations are current?: Yes - POLST Patient has POLST: No PD ED PE NORMAL - Vitals Vital signs reviewed: Yes - General General: Alert and oriented X 3, No acute distress - HEENT HEENT: Moist mucous membranes, Pharynx benign - Neck Neck: Supple, no meningeal sign - Cardiac Cardiac: RRR - Respiratory Respiratory: No respiratory distress, Clear bilaterally, Other (No stridor or wheezing) - Abdomen Abdomen: Soft, Non tender, Non distended - Derm Derm: Warm and dry - Neuro Neuro: Alert and oriented X 3 Results - Vitals Vitals: Vital Signs - 24 hr 01/14/23 01/14/23 12:22 13:32 Temperature 36.4 C L Heart Rate 72 76 Respiratory 18 18 Rate Blood Pressure 116/78 123/83 H O2 Saturation 100 99 Oxygen O2 Source Room air PD Medical Decision Making - ED course Complexity details: reviewed results, re-evaluated patient, considered differential, d/w patient ED course: Patient is tolerating p.o. without any difficulty here. Eating and drinking without vomiting. No evidence of esophageal obstruction. We will have her follow-up with her doctor for further care. Patient counseled regarding signs and symptoms for which I believe and urgent re-evaluation would be necessary. Patient with good understanding of and agreement to plan and is comfortable going home at this time This document was made in part using voice recognition software. While efforts are made to proofread this document, sound alike and grammatical errors may occur. Departure - Departure Disposition: 01 Home, Self Care Clinical Impression: Esophageal foreign body Qualifiers: Encounter type: initial encounter Qualified Code(s): T18.108A - Unspecified fo reign body in esophagus causing other injury, initial encounter Condition: Good Instructions: ED Foreign Body Esophageal Rslv Follow-Up: your,doctor in 1 week [Other] Comments: Please follow-up with your doctor for further care. You can discuss another endoscopy with your doctor. Please return if you worsen. Forms: PCP List Discharge Date/Time: 01/14/23 13:49
[2023-01-14] MEDS ORDERED: SUCRALFATE 1 GM/10 ML UDC PO STA (12:46)
[2023-01-14] MEDS ORDERED: MAG HYDROX/AL HYDROX/SIMETH 30 ML UDC PO STA (12:46)
[2023-01-14 13:34] VITALS: BP 123/83
== END 2023-01-14 13:49 | disposition home or self-care (01) ==
LOC: ED 12:14
DX: T18.108A Unspecified foreign body in esophagus causing other injury, initial encounter (principal)
CPT/HCPCS: 99282; 99283; A9270

== ENCOUNTER 2023-10-30 16:23 | Outpatient (CLI) | payer MEDICARE, MEDICAID | END 2023-10-30 21:48 | disposition critical access hospital (66) | LOC: EMS 16:23 | DX: R51.9 Headache, unspecified (principal) | CPT/HCPCS: A0425; A0429 ==

== ENCOUNTER 2023-10-30 16:35 | Emergency (ER) | payer MEDICARE, MEDICAID ==
[2023-10-30 16:54] VITALS: O2SAT 100
[2023-10-30] MEDS: KETOROLAC 30 MG/ML VIAL IM STA (16:59)
[2023-10-30] MEDS: DROPERIDOL 5 MG/2 ML VIAL IM STA (17:00)
--- NOTE | 2023-10-30 17:25 | ED Physician Documentation ---
PD HPI HEADACHE - Stated complaint Stated Complaint: HEADACHE - Chief complaint Chief Complaint: Neuro - History obtained from History obtained from: Patient, EMS - History of Present Illness Timing - onset: Today Timing - duration: Days (1) Pain level max: 8 Pain level now: 8 Location: Front Quality: Throbbing, Aching. No: Thunderclap Associated symptoms: No: Fever, Stiff neck, Nausea, Vomiting, Weakness, Numbness, Syncope, Seizure, Eye pain, Vision changes Contributing factors: No: Anticoagulated, Possible carbon monoxide, Hypertension, Recent illness, Trauma Recently seen: Not recently seen - Additional information Additional information: 37-year-old female states that she had a headache today. She states that this started this morning. She took 400 mg of ibuprofen at approximately 10 AM but still has a headache. Worse with light, noise and sound. No vomiting. No fevers. She is concerned that the headache is secondary to mold and is reques ting "a mold test". 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 : Incontinence HEENT: None Psych: Depression, Bipolar disorder Musculoskeletal: None Derm: None - Past Surgical History Past Surgical History: Yes General: Cholecystectomy - Present Medications Home Medications: Ambulatory Orders Medication Instructions Recorded Confirmed hydroCHLOROthiazide 25 mg PO DAILY #30 tablet 07/10/18 [Hydrochlorothiazide] LORazepam [Ativan] 1 - 2 tab PO Q2H PRN #24 tablet 02/05/21 - Allergies Allergies/Adverse Reactions: Allergies Allergy/AdvReac Type Severity Reaction Status Date / Time Penicillins AdvReac Unknown Rash Verified 07/10/18 20:09 bee stings AdvReac Mild Respiratory Uncoded 07/10/18 20:09 - Social History Does the pt smoke?: No Smoking Status: Never smoker Does the pt drink ETOH?: Yes Does the pt have substance abuse?: No - Immunizations Immunizations are current?: Yes - POLST Patient has POLST: No PD ED PE NORMAL - Vitals Vital signs reviewed: Yes - General General: Alert and oriented X 3, No acute distress - HEENT HEENT: PERRL, Ears normal, Moist mucous membranes, Pharynx benign, Other (Normal intranasal exam.) - Neck Neck: Supple, no meningeal sign, No bony TTP - Cardiac Cardiac: RRR, Strong equal pulses - Respiratory Respiratory: No respiratory distress, Clear bilaterally - Abdomen Abdomen: Soft, Non tender, Non distended - Back Back: No spinal TTP - Derm Derm: Warm and dry, No rash - Extremities Extremities: No edema - Neuro Neuro: Alert and oriented X 3, 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 Headache fully resolved. She states that she feels much better. Informed that we do not perform all testing in the emergency department and recommend that she follow-up with her doctor if she wishes to pursue this, I do not feel that her symptoms today are secondary to mold. No fevers. No chills. No evidence of subarachnoid hemorrhage, tumor, mass. Gradual onset headache. Patient counseled regarding signs and symptoms for which I believe and urgent re-evaluation would be necessary. Patient with good understanding of and agreement to plan and is comfortable going home at this time This document was made in part using voice recognition software. While efforts are made to proofread this document, sound alike and grammatical errors may occur. Departure - Departure Disposition: 01 Home, Self Care Clinical Impression: Headache Qualifiers: Headache type: unspecified Headache chronicity pattern: acute headache Intractability: not intractable Qualified Code(s): R51.9 - Headache, unspecified Condition: Good Instructions: ED Cephalgia Unspecified Follow-Up: your,doctor in 1 week [Other] Comments: Please follow-up with your doctor for further care. Please return if you worsen. Your headache has resolved today. Forms: PCP List Discharge Date/Time: 10/30/23 17:30
[2023-10-30 17:42] VITALS: BP 131/86
== END 2023-10-30 17:30 | disposition home or self-care (01) ==
LOC: EDUNIT# → ED 16:35
DX: R51.9 Headache, unspecified (principal); I10 Essential (primary) hypertension; F32.A Depression, unspecified
CPT/HCPCS: 96372; 99283